=== PATIENT | male | born 1965 | race Caucasian/White ===

== ENCOUNTER 2024-08-22 06:52 | Inpatient (IN) | payer BC, OTHER ==
[~2024-08-22] VITALS: Ht 177.8 cm; Wt 88.5 kg
--- NOTE | 2024-08-22 07:05 | ED.PDOC ---
HPI Comments 59 y.o male presents to the ED for a chief complaint of substernal chest pain x 1 week associated with nausea and vomiting x 3-4 days. Patient describes pain as a tightness sensation, radiates to bilateral arms x last night, and worsens with exertion. Patient denies any previous pain, cardiac history, tobacco or substance use. Patient reports occasional use of alcohol. No medical history reported. Time Seen by MD: 06:56 Reviewed Notes: Nurses Notes, Medications, Allergies Allergies: Coded Allergies: NO KNOWN ALLERGIES (Unverified , 08/22/24) Home Meds No Active Prescriptions or Reported Meds Information Source: Patient Mode of Arrival: Ambulatory Severity: Moderate Timing: Weeks (1) Duration: Since onset Location: Substernal Radiation: Arm (R), Arm (L) Quality: Tightness Onset: At Rest Cardiac Risk Factors: None PE Risk Factors: None History of: None Modifying Factors: Nothing Associated Signs and Symptoms: N/V Past Medical History PAST MEDICAL HISTORY: Denies Surgical History: Denies all surgeries Family History Family History: Reviewed,noncontributory to illness Social History Smoker: Non-Smoker Alcohol: Occasionally Drugs: Denies Drug Use Lives In: Home Constitutional: denies: chills, diaphoresis, fatigue, fever, malaise, sweats, weakness, others EENTM: denies: blurred vision, double vision, ear bleeding, ear discharge, ear drainage, ear pain, ear ringing, eye pain, eye redness, hearing loss, mouth pain, mouth swelling, nasal discharge, nose bleeding, nose congestion, nose pain, photophobia, tearing, throat pain, throat swelling, voice changes, others Respiratory: denies: cough, hemoptysis, orthopnea, SOB at rest, shortness of breath, SOB with excertion, stridor, wheezing, others Cardiovascular: reports: chest pain, left arm pain (bilateral arm pain ); denies: dizzy spells, diaphoresis, Dyspnea on exertion, edema, irregular heart beat, lightheadedness, palpitations, PND, syncope, others Gastrointestinal: reports: nausea, vomiting; denies: abdomen distended, abdominal pain, blood streaked bowels, constipated, diarrhea, dysphagia, difficulty swallowing, hematemesis, melena, poor appetite, poor fluid intake, rectal bleeding, rectal pain, others Genitourinary: denies: burning, dysuria, flank pain, frequency, hematuria, incontinence, penile discharge, penile sore, pain, testicle pain, testicle swelling, urgency, others Neurological: denies: dizziness, fainting, headache, left sided numbness, left sided weakness, numbness, paresthesia, pre-existing deficit, right sided numbness, right sided weakness, seizure, speech problems, tingling, tremors, weakness, others Musculoskeletal: denies: back pain, gout, joint pain, joint swelling, muscle pain, muscle stiffness, neck pain, others Integumetry: denies: bruises, change in color, change in hair/nails, dryness, laceration, lesions, lumps, rash, wounds, others Allergic/Immunocompromised: denies: Difficulty Healing, Frequent Infections, Hives, Itching, others Hematologic/Lymphatic: denies: anemia, blood clots, easy bleeding, easy bruising, swollen glands, others Endocrine: denies: excessive hunger, excessive sweating, excessive thirst, excessive urination, flushing, intolerance to cold, intolerance to heat, unexplained weight gain, unexplained weight loss, others Psychiatric: denies: anxiety, bipolar disorder, depression, hopeless, panic disorder, schizophrenia, sleepless, suicidal, others All Other Systems: Reviewed and Negative Physical Exam General Appearance: Moderate Distress HEENT: Normal ENT Inspection, Pharynx Normal, TMs Normal Neck: Full Range of Motion, Non-Tender, Normal, Normal Inspection Respiratory: Chest Non-Tender, Lungs Clear, No Accessory Muscle Use, No Respiratory Distress, Normal Breath Sounds Cardiovascular: No Edema, No JVD, No Murmur, No Gallop, Normal Peripheral Pulses, Regular Rate/Rhythm Breast Exam: Deferred Gastrointestinal: No Organomegaly, Non Tender, No Pulsatile Mass, Normal Bowel Sounds, Soft Genitalia: Deferred Pelvic: Deferred Rectal: Deferred Extremities: No calf tenderness, Normal capillary refill, Normal inspection, Normal range of motion, Non-tender, No pedal edema Musculoskeletal : Apperance: Normal Neurologic: Alert, 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 Was a procedure done?: No CP Differential Dx Differential Diagnosis: A-fib, A-Flutter, Angina, Anxiety / Panic Attack, Atrial Dysrhythmia, Electrolyte Disorder, N/A Differential Diagnosis: Angina, Chest Wall Pain, Costochondritis, Esophageal reflux/spasm, Gastritis, Myocardial Infarction, Pericarditis X-Ray, Labs, Meds, VS Vital Signs Date Time Temp Pulse Resp B/P (MAP) Pulse Ox O2 Delivery O2 Flow Rate FiO2 08/22/24 09:01 97.2 76 18 140/92 (108) 98 97.2 08/22/24 09:01 74 18 98 Room Air 08/22/24 08:34 75 08/22/24 08:00 72 08/22/24 06:57 80 08/22/24 06:52 98.7 75 20 151/99 (116) 99 98.7 Lab Test 08/22/24 09:05 08/22/24 07:04 Range/Units Urine Color Light-yellow Yellow Urine Clarity Clear Clear Urine pH 6.5 5.0-9.0 Urine Specific [place] 1.013 1.001-1.035 Urine Protein Negative Negative Urine Ketones Negative Negative Urine Blood Trace H Negative /uL Urine Nitrite Negative Negative Urine Bilirubin Negative Negative Urine Urobilinogen Normal Negative mg/dL Urine Leukocyte Esterase Negative Negative /uL Urine RBC 1 0 - 3 /hpf Urine Microscopic WBC < 1 0-3 /HPF Urine Squamous Epithelial Cells None seen <5 /hpf Urine Bacteria None seen None Seen /hpf Urine Glucose Normal Normal mg/dL Urine Opiates Screen Neg NEGATIVE Urine Fentanyl Screen Neg NEGATIVE Urine Barbiturates Screen Neg NEGATIVE Urine Phencyclidine Screen Neg NEGATIVE Urine Amphetamines Screen Neg NEGATIVE Urine Benzodiazepines Screen Neg NEGATIVE Urine Cocaine Screen Neg NEGATIVE Urine Cannabinoids Screen Neg NEGATIVE White Blood Count 4.4 4.4-10.8 10^3/uL Red Blood Count 4.88 4.5-5.90 10^6/uL Hemoglobin 14.8 13.5-17.5 g/dL Hematocrit 42.5 41.0-53.0 % Mean Corpuscular Volume 87.2 80.0-100.0 fL Mean Corpuscular Hemoglobin 30.4 28.0-32.0 pg Mean Corpuscular Hemoglobin Concent 34.9 32.0-36.0 g/dL Red Cell Distribution Width 13.1 11.8-14.3 % Platelet Count 179 140-450 10^3/uL Mean Platelet Volume 7.6 6.9-10.8 fL Neutrophils (%) (Auto) 68.5 37.0-80.0 % Lymphocytes (%) (Auto) 17.8 10.0-50.0 % Monocytes (%) (Auto) 9.8 0.0-12.0 % Eosinophils (%) (Auto) 3.4 0.0-7.0 % Basophils (%) (Auto) 0.5 0.0-2.0 % Neutrophils # (Auto) 3.0 1.6-8.6 10 ^3/uL Lymphocytes # (Auto) 0.8 0.4-5.4 10 ^3/uL Monocytes # (Auto) 0.4 0-1.3 10 ^3/uL Eosinophils # (Auto) 0.1 0-0.8 10 ^3/uL Basophils # (Auto) 0 0-0.2 10 ^3/uL Nucleated Red Blood Cells 0.1 % Sodium Level 142 136-145 mmol/L Potassium Level 4.2 3.5-5.1 mmol/L Chloride Level 107 98-107 mmol/L Carbon Dioxide Level 29 20-31 mmol/L Anion Gap 6 5-15 Blood Urea Nitrogen 16 9-23 mg/dL Creatinine 1.02 0.700-1.30 mg/dL Glomerular Filtration Rate Calc 86 >90 mL/min BUN/Creatinine Ratio 15.7 10.0-20.0 Serum Glucose 114 H 74-106 mg/dL Hemoglobin A1c 5.2 <5.7 % A1C Calcium Level 9.8 8.7-10.4 mg/dL Troponin I High Sensitivity 46 </=54 ng/L Triglycerides Level 165 H < 150 mg/dL Cholesterol Level 205 H < 200 mg/dL LDL Cholesterol 144 H < 100 mg/dL HDL Cholesterol 48 40-59 mg/dL Thyroid Stimulating Hormone (TSH) 0.93 0.55-4.78 uIU/mL Patient alert. Complaining of chest pain. Chest pain mostly upon exertion. Vitals stable. Answering questions. Cardiac marker within normal limits. WBC within normal limits. Hemoglobin within normal limits. He will need stress test. Echocardiogram. EKG reviewed does not show any acute changes. Explained to the patient that he will be admitted for further studies cardiology consultation. Continue monitoring. Time of 1ST Reevaluation: 07:02 Reevaluation 1ST: Unchanged Patient Education/Counseling: Diagnosis, Treatment, Prognosis Family Education/Counseling: No Family Present Departure 1 Departure Time of Disposition: 17:45 Impression: Primary Impression: Chest pain of unknown etiology Disposition: ADMITTED INPATIENT Admit to: Med Surg Condition: Guarded e-Prescriptions No Active Prescriptions or Reported Meds Critical Care Note Critical Care Time?: Yes (90 min-critical care time only) Critical care comment: Continues to have chest pain Stability Stability form required: No Heart Score Heart Score: Heart Score Response (Comments) Value History Slightly Suspicious 0 EKG Normal 0 Age 45-64 1 Risk Factors No known risk factors 0 Troponin Normal limit 0 Total 1 I personally scribed for MACKENZIE BALDWIN MD ([email or web address]) on 08/22/24 at 07:05. Electronically submitted by Bonny Tenorio ([facility]). MACKENZIE BALDWIN MD Aug 22, 2024 07:05
[2024-08-22 07:20] LABS: Basophils # (auto) 0 10 ^3/uL (0-0.2); Basophils % (auto) 0.5 % (0.0-2.0); Eosinophils # (auto) 0.1 10 ^3/uL (0-0.8); Eosinophils % (auto) 3.4 % (0.0-7.0); Hematocrit 42.5 % (41.0-53.0); Hemoglobin 14.8 g/dL (13.5-17.5); Lymphocytes # (auto) 0.8 10 ^3/uL (0.4-5.4); Lymphocytes % (auto) 17.8 % (10.0-50.0); Mean Corpuscular Hemoglobin 30.4 pg (28.0-32.0); Mean Corpuscular Hgb Conc. 34.9 g/dL (32.0-36.0); Mean Corpuscular Volume 87.2 fL (80.0-100.0); Monocytes # (auto) 0.4 10 ^3/uL (0-1.3); Monocytes % (auto) 9.8 % (0.0-12.0); Neutrophils % (auto) 68.5 % (37.0-80.0); Nucleated Red Blood Cells % 0.1 %; Platelet Count (auto) 179 10^3/uL (140-450); Red Blood Cells 4.88 10^6/uL (4.5-5.90); Red Cell Distribution Width 13.1 % (11.8-14.3); White Blood Cell 4.4 10^3/uL (4.4-10.8)
--- NOTE | 2024-08-22 07:20 | ECG ---
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
[2024-08-22 07:24] LABS: Chloride 107 mmol/L (98-107); Potassium 4.2 mmol/L (3.5-5.1); Sodium 142 mmol/L (136-145)
[2024-08-22 07:25] LABS: Anion Gap 6 (5-15); Carbon Dioxide 29 mmol/L (20-31)
[2024-08-22 07:26] LABS: Calcium 9.8 mg/dL (8.7-10.4)
[2024-08-22 07:31] LABS: BUN/Creatinine Ratio 15.7 (10.0-20.0); Blood Urea Nitrogen 16 mg/dL (9-23)
[2024-08-22 07:32] LABS: Glucose 114 mg/dL (74-106)
[2024-08-22 09:13] LABS: Urine Bacteria None Seen /hpf (None Seen)
[2024-08-22 09:17] LABS: Urine Blood TRACE /uL (Negative); Urine Clarity Clear (Clear); Urine Color Light-Yellow (Yellow); Urine Protein, UAD Negative (Negative); Urine Specific Gravity 1.013 (1.001-1.035); Urine Squamous Epithelial Cell None Seen /hpf (<5); Urine Urobilinogen Normal (Negative); Urine WBC < 1 /HPF (0-3); Urine pH 6.5 (5.0-9.0)
[2024-08-22 09:22] LABS: Triglycerides 165 mg/dL (< 150)
[2024-08-22 09:23] LABS: Cholesterol 205 mg/dL (< 200); HDL Cholesterol 48 mg/dL (40-59); LDL Cholesterol 144 mg/dL (< 100)
[2024-08-22 09:36] LABS: Amphetamine Screen, Urine Neg (NEGATIVE); Barbiturate Scree,Urine Neg (NEGATIVE); Benzodiazephine Screen, Urine Neg (NEGATIVE); Cannabinoid Screen, Urine Neg (NEGATIVE); Cocaine Screen, Urine Neg (NEGATIVE); Opiate Scree,Urine Neg (NEGATIVE); Phencyclidine Screen, Urine Neg (NEGATIVE)
[2024-08-22] MEDS ORDERED: MORPHINE SULFATE 4 MG/ML SYR/VIAL IV PRN (10:45)
[2024-08-22] MEDS ORDERED: MORPHINE SULFATE INJ 2 MG/ml SYRG IV PRN (10:45)
[2024-08-22] MEDS ORDERED: ONDANSETRON HCL 4 MG/2 ML VIAL IV PRN (10:45)
[2024-08-22] MEDS ORDERED: ACETAMINOPHEN 325 MG TAB PO PRN (10:45)
[2024-08-22] MEDS ORDERED: NITROGLYCERIN 0.4 MG SL TAB SL PRN ×2 (10:45)
[2024-08-22] MEDS ORDERED: hydrALAZINE HCL 20 MG/ML VL IV PRN (10:45)
--- NOTE | 2024-08-22 10:46 | DVHHP2 ---
History of Present Illness Reason for Visit: Chest pain with nausea and vomiting History of Present Illness Taye Echeverria is a 59-year-old male with past medical history of hyperlipidemia and right thigh laceration who presents to the ED with chest pain with nausea and vomiting x 2 weeks. Patient reports that currently the pain is 1/10 sharp and intermittent nature. 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 Patient denies any recent trauma or injury, recent sick contacts, shortness of breath, fever, chills, lightheadedness, weakness, recent ingestion of spoiled food, abdominal pain, or diarrhea. Patient denies any melena, hematemesis, or hematochezia. Cardiovascular: hyperipidemia Past Surgical History: Other (Right thigh laceration) Family History: None Smoke: No ALCOHOL: occassional Drugs: None Lives: with Family Domestic Violence: Neg Review of Systems Cardiovascular: Chest Pain Gastrointestinal: Nausea, Vomiting Allergies: Coded Allergies: NO KNOWN ALLERGIES (Unverified , 08/22/24) Medications Current Medications Medications Dose Ordered Sig/Anna Marie Route Start Time Stop Time Status Last Admin Dose Admin Aspirin 81 mg DAILY PO 08/23/24 10:00 UNV Atorvastatin Calcium 40 mg HS PO 08/22/24 22:00 UNV Exam Vital Signs Vital Signs Date Time Temp Pulse Resp B/P (MAP) Pulse Ox O2 Delivery O2 Flow Rate FiO2 08/22/24 09:01 97.2 76 18 140/92 (108) 98 97.2 08/22/24 09:01 Room Air General Appearance: Alert, Oriented X3, Cooperative, No acute distress HEENT: Atraumatic, PERRLA, EOMI, Mucous membr. moist/pink Respiratory: Clear to auscultation, Normal air movement Cardiovascular: Regular rate, Normal S1, Normal S2, No murmurs Abdominal: Normal bowel sounds, Soft Extremities: No clubbing, No cyanosis, No edema, Normal pulses Skin: No significant lesion Neuro: Normal gait, Normal speech, Strength at 5/5 X4 ext, Normal tone, Sensation intact Psych/Mental Status: Mental status NL, Mood NL Labs/Xrays Labs Test 08/22/24 09:05 08/22/24 07:04 Range/Units Urine Color Light-yellow Yellow Urine Clarity Clear Clear Urine pH 6.5 5.0-9.0 Urine Specific [place] 1.013 1.001-1.035 Urine Protein Negative Negative Urine Ketones Negative Negative Urine Blood Trace H Negative /uL Urine Nitrite Negative Negative Urine Bilirubin Negative Negative Urine Urobilinogen Normal Negative mg/dL Urine Leukocyte Esterase Negative Negative /uL Urine RBC 1 0 - 3 /hpf Urine Microscopic WBC < 1 0-3 /HPF Urine Squamous Epithelial Cells None seen <5 /hpf Urine Bacteria None seen None Seen /hpf Urine Glucose Normal Normal mg/dL Urine Opiates Screen Neg NEGATIVE Urine Fentanyl Screen Neg NEGATIVE Urine Barbiturates Screen Neg NEGATIVE Urine Phencyclidine Screen Neg NEGATIVE Urine Amphetamines Screen Neg NEGATIVE Urine Benzodiazepines Screen Neg NEGATIVE Urine Cocaine Screen Neg NEGATIVE Urine Cannabinoids Screen Neg NEGATIVE White Blood Count 4.4 4.4-10.8 10^3/uL Red Blood Count 4.88 4.5-5.90 10^6/uL Hemoglobin 14.8 13.5-17.5 g/dL Hematocrit 42.5 41.0-53.0 % Mean Corpuscular Volume 87.2 80.0-100.0 fL Mean Corpuscular Hemoglobin 30.4 28.0-32.0 pg Mean Corpuscular Hemoglobin Concent 34.9 32.0-36.0 g/dL Red Cell Distribution Width 13.1 11.8-14.3 % Platelet Count 179 140-450 10^3/uL Mean Platelet Volume 7.6 6.9-10.8 fL Neutrophils (%) (Auto) 68.5 37.0-80.0 % Lymphocytes (%) (Auto) 17.8 10.0-50.0 % Monocytes (%) (Auto) 9.8 0.0-12.0 % Eosinophils (%) (Auto) 3.4 0.0-7.0 % Basophils (%) (Auto) 0.5 0.0-2.0 % Neutrophils # (Auto) 3.0 1.6-8.6 10 ^3/uL Lymphocytes # (Auto) 0.8 0.4-5.4 10 ^3/uL Monocytes # (Auto) 0.4 0-1.3 10 ^3/uL Eosinophils # (Auto) 0.1 0-0.8 10 ^3/uL Basophils # (Auto) 0 0-0.2 10 ^3/uL Nucleated Red Blood Cells 0.1 % Sodium Level 142 136-145 mmol/L Potassium Level 4.2 3.5-5.1 mmol/L Chloride Level 107 98-107 mmol/L Carbon Dioxide Level 29 20-31 mmol/L Anion Gap 6 5-15 Blood Urea Nitrogen 16 9-23 mg/dL Creatinine 1.02 0.700-1.30 mg/dL Glomerular Filtration Rate Calc 86 >90 mL/min BUN/Creatinine Ratio 15.7 10.0-20.0 Serum Glucose 114 H 74-106 mg/dL Hemoglobin A1c 5.2 <5.7 % A1C Calcium Level 9.8 8.7-10.4 mg/dL Troponin I High Sensitivity 46 </=54 ng/L Triglycerides Level 165 H < 150 mg/dL Cholesterol Level 205 H < 200 mg/dL LDL Cholesterol 144 H < 100 mg/dL HDL Cholesterol 48 40-59 mg/dL Thyroid Stimulating Hormone (TSH) 0.93 0.55-4.78 uIU/mL CHEST RADIOGRAPH Indication: cp Technique: Single frontal view of the chest was obtained Comparison: None FINDINGS: Lines and Tubes: None Lungs: No focal consolidation. Pleura: No effusion. No pneumothorax. Cardiomediastinal contours: Unremarkable Bones: No acute osseous abnormality. IMPRESSION: No acute cardiopulmonary disease. 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 Procedure Category Date Status Time Admit ADMIT 08/22/24 Transmitted 10:33 Code Status CODE 08/22/24 Transmitted 10:33 Vital Signs NAKIA 08/22/24 In Process 10:33 Tag And Label Cutter NAKIA 08/22/24 In Process 10:33 Cardiac DIET 08/22/24 Transmitted Diet-2gna,Lofat,Lochol Lunch Aspirin Tablet PHA 08/23/24 Transmitted 10:00 Lipitor 40mg Hs PHA 08/22/24 Transmitted Hi-Intensity 22:00 Morphine Sulfate PHA 08/22/24 Transmitted Injection 10:45 Acetaminophen Tablet PHA 08/22/24 Transmitted (Tylenol Tablet) 10:45 Complete Blood Count LAB 08/23/24 Verified 04:00 Basic Metabolic Panel LAB 08/23/24 Verified 04:00 Magnesium LAB 08/23/24 Verified 04:00 Lipid Panel LAB 08/23/24 Verified 04:00 Echo 2d Mode Cardiac US 08/22/24 Logged DOP 10:33 Nitroglycerin PHA 08/22/24 Transmitted Sublingual (Ntrostat 10:45 Ondansetron Hcl PHA 08/22/24 Transmitted (Zofran) 10:45 Troponin-I Hs LAB 08/23/24 Verified 04:00 Cardiac NAKIA 08/22/24 In Process Rehabilitation - Outpa Nitroglycerin PHA 08/22/24 Transmitted Sublingual (Ntrostat 10:45 Morphine Sulfate PHA 08/22/24 Transmitted Injection 10:45 Stat Ekg For Chest NAKIA 08/22/24 In Process Pain 10:33 Notify Md Of Changes NAKIA 08/22/24 Transmitted From Base 10:33 Controls Engineer For NAKIA 08/22/24 Transmitted 24 Hours 10:33 Emergency Dysrhythmia NAKIA 08/22/24 Transmitted Protocol 10:33 Rhythm Strips Once NAKIA 08/22/24 Transmitted Every Shift 10:33 Oxygen By Nasal RT 08/22/24 Transmitted Cannula 10:33 Date of Service: Aug 22, 2024 Billing Provider: EARL WING Common Visit Codes: [id number] INP/OBS CARE (HIGH) EARL WING Aug 22, 2024 10:46
--- NOTE | 2024-08-22 11:06 | DVH ---
CHEST RADIOGRAPH Indication: cp Technique: Single frontal view of the chest was obtained Comparison: None FINDINGS: Lines and Tubes: None Lungs: No focal consolidation. Pleura: No effusion. No pneumothorax. Cardiomediastinal contours: Unremarkable Bones: No acute osseous abnormality. IMPRESSION: No acute cardiopulmonary disease.
[2024-08-22 11:30] LABS: Rapid Influenza A Negative (Negative); Rapid Influenza B Negative (Negative)
[2024-08-22 11:31] LABS: COVID19 ANTIGEN SOFIA FIA NEGATIVE (NEGATIVE)
[2024-08-22 11:56] VITALS: PULSE 82; RESP 13; O2SAT 97
[2024-08-22 12:12] VITALS: BP 137/88; PULSE 68; RESP 15; TEMP 97.9; O2SAT 97
--- NOTE | 2024-08-22 17:39 | ECG ---
[facility] Test Date: 2024-08-22 Test Time: 08:00:21 Pat Name: REID ANDREWS Department: ED Room: [facility]5T A Gender: M Contact Centre Supervisor: JODY : 1965 Requested By: MACKENZIE BALDWIN Order Number: [id number] Reading MD: Dante Rivers Measurements Intervals [place] Rate: 72 P: 46 [place]: 176 QRS: 51 QRSD: 95 T: 50 QT: 390 QTc: 427 Interpretive Statements Sinus rhythm Abnormal R-wave progression, early transition Electronically Signed On 08-23-2024 9:34:24 PDT by Dante Rivers Please click the below link to view image of tracing.
--- NOTE | 2024-08-22 17:48 | DVHSR ---
APPROVED REPORT EXAM: Two-dimensional and M-mode echocardiogram with Doppler and color Doppler. Blood Pressure: 140/92 mmHg INDICATION Chest Pain RISK FACTORS Height: 5' 10", Weight: 194 DIMENSIONS LVDd4.7 (3.8-5.7cm)LA (2D)3.5 (1.9-4.0cm)Aortic Root3.8 (2.0-3.7cm) LVDs3.2 (2.5-4.0cm)LA (MM) (1.9-4.0cm)Aortic Cusp Exc2.1 (1.5-2.0cm) EF (%) 60.0 (55-70%)Rt. Atrium4.0 (1.9-4.0cm)Asc. Aorta cm IVSd1.0 (0.7-1.1cm)RV (D) (1.8-2.4cm) PWd1.0 (0.7-1.1cm) Mitral Valve MitralMitral Stenosis E wave0.60m/sMV Mean GR.mmHg A wave0.70m/sMV Peak GR.mmHg E/A ratio0.92D MVAcm2 Aortic Valve Aortic ValveAortic Stenosis V10.84m/Rocio Mean GR.2mmHg V21.00m/Rocio Peak GR.4mmHg LVOT Diameter2.4 (1.8-2.4cm)Doppler AVA3.80cm2 AI P 1/2 Lmau468.02ms Pulmonic Valve V20.60m/s Tricuspid Valve TR Velocity2.10m/s [id number] Conclusion Technically good study sinus rhythm. Aortic root enlargement. Left atrial enlargement. Mild RV enlargement. Valves appear to be structurally normal. EF of 45-50% with mild global hypokinesis. Mild anterior hypokinesis. Doppler is unremarkable. No pericardial effusion masses or vegetations noted.
[2024-08-22 17:52] VITALS: BP 128/82; PULSE 71; RESP 17; TEMP 98.1; O2SAT 97
[2024-08-22 20:00] VITALS: PULSE 76; PULSE 82; RESP 15; O2SAT 93
[2024-08-22] MEDS: ATORVASTATIN 20 MG TAB PO SCH (20:58)
[2024-08-22 21:00] VITALS: BP 126/84; PULSE 76; RESP 15; TEMP 98.7; O2SAT 93
[2024-08-23 01:00] VITALS: BP 120/79; PULSE 69; RESP 14; TEMP 97.9; O2SAT 95
[2024-08-23 06:19] LABS: Basophils # (auto) 0 10 ^3/uL (0-0.2); Basophils % (auto) 0.8 % (0.0-2.0); Eosinophils # (auto) 0.2 10 ^3/uL (0-0.8); Eosinophils % (auto) 4.2 % (0.0-7.0); Hemoglobin 14.7 g/dL (13.5-17.5); Lymphocytes # (auto) 0.8 10 ^3/uL (0.4-5.4); Lymphocytes % (auto) 21.5 % (10.0-50.0); Mean Corpuscular Hemoglobin 30.6 pg (28.0-32.0); Mean Corpuscular Volume 87.6 fL (80.0-100.0); Monocytes # (auto) 0.4 10 ^3/uL (0-1.3); Monocytes % (auto) 10.2 % (0.0-12.0); Neutrophils # (auto) 2.4 10 ^3/uL (1.6-8.6); Neutrophils % (auto) 63.3 % (37.0-80.0); Nucleated Red Blood Cells % 0.1 %; Platelet Count (auto) 176 10^3/uL (140-450); White Blood Cell 3.8 10^3/uL (4.4-10.8)
[2024-08-23 06:28] LABS: Chloride 106 mmol/L (98-107); Potassium 4.5 mmol/L (3.5-5.1); Sodium 141 mmol/L (136-145)
[2024-08-23 06:29] LABS: Anion Gap 6 (5-15); Calcium 10.1 mg/dL (8.7-10.4); Carbon Dioxide 29 mmol/L (20-31)
[2024-08-23 06:35] LABS: BUN/Creatinine Ratio 13.5 (10.0-20.0); Blood Urea Nitrogen 14 mg/dL (9-23); Magnesium 2.2 mg/dL (1.6-2.6)
[2024-08-23 06:42] LABS: Cholesterol 208 mg/dL (< 200); Glucose 107 mg/dL (74-106); HDL Cholesterol 39 mg/dL (40-59); LDL Cholesterol 141 mg/dL (< 100); Triglycerides 212 mg/dL (< 150)
[2024-08-23 08:00] VITALS: PULSE 87
[2024-08-23 09:00] VITALS: BP 150/92; PULSE 79; RESP 16; TEMP 97.6; O2SAT 97
[2024-08-23] MEDS: ASPirin 81 mg TAB PO SCH (09:18)
--- NOTE | 2024-08-23 19:06 | DVHDS2 ---
Discharge Summary Date of Admission Aug 22, 2024 at 10:33 Date of Discharge: Aug 23, 2024 Labs/Diagnostic Data: Laboratory Results Test 08/23/24 05:28 08/22/24 10:45 08/22/24 09:05 08/22/24 07:04 White Blood Count 3.8 10^3/uL (4.4-10.8) Red Blood Count 4.80 10^6/uL (4.5-5.90) Hemoglobin 14.7 g/dL (13.5-17.5) Hematocrit 42.0 % (41.0-53.0) Mean Corpuscular Volume 87.6 fL (80.0-100.0) Mean Corpuscular Hemoglobin 30.6 pg (28.0-32.0) Mean Corpuscular Hemoglobin Concent 35.0 g/dL (32.0-36.0) Red Cell Distribution Width 13.0 % (11.8-14.3) Platelet Count 176 10^3/uL (140-450) Mean Platelet Volume 7.5 fL (6.9-10.8) Neutrophils (%) (Auto) 63.3 % (37.0-80.0) Lymphocytes (%) (Auto) 21.5 % (10.0-50.0) Monocytes (%) (Auto) 10.2 % (0.0-12.0) Eosinophils (%) (Auto) 4.2 % (0.0-7.0) Basophils (%) (Auto) 0.8 % (0.0-2.0) Neutrophils # (Auto) 2.4 10 ^3/uL (1.6-8.6) Lymphocytes # (Auto) 0.8 10 ^3/uL (0.4-5.4) Monocytes # (Auto) 0.4 10 ^3/uL (0-1.3) Eosinophils # (Auto) 0.2 10 ^3/uL (0-0.8) Basophils # (Auto) 0 10 ^3/uL (0-0.2) Nucleated Red Blood Cells 0.1 % Sodium Level 141 mmol/L (136-145) Potassium Level 4.5 mmol/L (3.5-5.1) Chloride Level 106 mmol/L (98-107) Carbon Dioxide Level 29 mmol/L (20-31) Anion Gap 6 (5-15) Blood Urea Nitrogen 14 mg/dL (9-23) Creatinine 1.04 mg/dL (0.700-1.30) Glomerular Filtration Rate Calc 84 mL/min (>90) BUN/Creatinine Ratio 13.5 (10.0-20.0) Serum Glucose 107 mg/dL (74-106) Calcium Level 10.1 mg/dL (8.7-10.4) Magnesium Level 2.2 mg/dL (1.6-2.6) Troponin I High Sensitivity 146 ng/L (</=54) Triglycerides Level 212 mg/dL (< 150) Cholesterol Level 208 mg/dL (< 200) LDL Cholesterol 141 mg/dL (< 100) HDL Cholesterol 39 mg/dL (40-59) Influenza Type A Antigen Negative (Negative) Influenza Type B Antigen Negative (Negative) SARS-CoV-2 Antigen (Rapid) Negative (NEGATIVE) Urine Color Light-yellow (Yellow) Urine Clarity Clear (Clear) Urine pH 6.5 (5.0-9.0) Urine Specific [place] 1.013 (1.001-1.035) Urine Protein Negative (Negative) Urine Ketones Negative (Negative) Urine Blood Trace /uL (Negative) Urine Nitrite Negative (Negative) Urine Bilirubin Negative (Negative) Urine Urobilinogen Normal mg/dL (Negative) Urine Leukocyte Esterase Negative /uL (Negative) Urine RBC 1 /hpf (0 - 3) Urine Microscopic WBC < 1 /HPF (0-3) Urine Squamous Epithelial Cells None seen /hpf (<5) Urine Bacteria None seen /hpf (None Seen) Urine Glucose Normal mg/dL (Normal) Urine Opiates Screen Neg (NEGATIVE) Urine Fentanyl Screen Neg (NEGATIVE) Urine Barbiturates Screen Neg (NEGATIVE) Urine Phencyclidine Screen Neg (NEGATIVE) Urine Amphetamines Screen Neg (NEGATIVE) Urine Benzodiazepines Screen Neg (NEGATIVE) Urine Cocaine Screen Neg (NEGATIVE) Urine Cannabinoids Screen Neg (NEGATIVE) Hemoglobin A1c 5.2 % A1C (<5.7) Thyroid Stimulating Hormone (TSH) 0.93 uIU/mL (0.55-4.78) Other Laboratory Tests 08/23/24 05:28 Brief Hx & Hospital Course: Taye Echeverria is a 59-year-old male with past medical history of hyperlipidemia and right thigh laceration who presents to the ED with chest pain with nausea and vomiting x 2 weeks. Patient reports that currently the pain is 1/10 sharp and intermittent nature. 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 Patient denies any recent trauma or injury, recent sick contacts, shortness of breath, fever, chills, lightheadedness, weakness, recent ingestion of spoiled food, abdominal pain, or diarrhea. Patient denies any melena, hematemesis, or hematochezia. He left AMA Condition at Discharge: Good Final Diagnosis/Problems List Chest pain with nausea and vomiting Hypertensive urgency History of hyperlipidemia History of right thigh laceration Discharge Disposition: AMA Discharge Statement: "Patient was advised to return to the ER or call 911 if any headaches, dizziness, shortness of breath, chest pain, abdominal pain, bleeding, fevers, or worsening of medical condition. Patient was counseled about treatment plan, medications, possible side effects, patientverbalized understanding. All questions were answered to the best of my ability. This discharge took greater then 30 minutes in planning, reviewing documentation, counseling the patient, and discussing with other team members." ASSESSMENT ASSESSMENT Assessment Date of Service: Aug 23, 2024 Billing Provider: MARIA M CALLOWAY MD Common Visit Codes: [id number] DISCH DAY >30min MARIA M CALLOWAY MD Aug 23, 2024 19:06
== END 2024-08-23 10:30 | disposition left against medical advice (07) | DRG 305 ==
LOC: ER 06:57 → OVERFLOW 10:33 → TELE-WESTW 14:25
PROVIDERS: ADMIT Hospitalist; ATTEND Hospitalist
DX: I16.0 Hypertensive urgency (principal); E78.5 Hyperlipidemia, unspecified; Z53.29 Procedure and treatment not carried out because of patient's decision for other reasons; Z79.899 Other long term (current) drug therapy
CPT/HCPCS: 36415; 71045; 80048; 80061; 80307; 81001; 83036; 83735; 84443; 84484; 85025; 87426; 87804; 93005; 93306; 99291; 99292; G0378